=== PATIENT | female | born 1985 | race Caucasian/White ===

== ENCOUNTER 2021-03-22 21:31 | Emergency (ER) | payer SELFPAY ==
[~2021-03-22] VITALS: Ht 172.7 cm; Wt 61.0 kg
[2021-03-22] MEDS ORDERED: ONDANSETRON HCL 4MG/2ML INJ IV STA (23:11)
[2021-03-22] MEDS ORDERED: FAMOTIDINE 20MG/2ML VIAL IV STA (23:11)
[2021-03-22] MEDS ORDERED: VISCOUS LIDOCAINE 2% 15 ML UDC PO STA (23:11)
[2021-03-22] MEDS ORDERED: SODIUM CHLORIDE 0.9% 1,000 ML IV ONE (23:15)
[2021-03-22 23:29] LABS: BASOPHILS % 0.7 % (0.0-2.0); EOSINOPHILS % 1.2 % (0.0-5.0); HEMATOCRIT. 38.7 % (36.0-48.0); HEMOGLOBIN. 13.5 g/dL (12.0-16.0); LYMPHOCYTES % 25.4 % (20.0-50.0); MEAN CORPUSCULAR HEMOGLOBIN 30.9 pg (28.0-32.0); MEAN CORPUSCULAR VOLUME 88.7 fL (81.0-99.0); MEAN PLATELET VOLUME 9.5 fl (7.4-10.4); MONOCYTES % 6.2 % (2.0-8.0); NEUTROPHILS % 66.5 % (40.0-76.0); PLATELET 240 x1000/uL (130-400); RED BLOOD CELL COUNT 4.37 mill/uL (4.2-5.4)
[2021-03-22 23:36] LABS: CHLORIDE 108 mEq/L (98-107)
[2021-03-22 23:43] LABS: HCG SCREEN NEGATIVE
[2021-03-22 23:45] LABS: PROTHROMBIN TIME 10.5 sec (9.6-11.0)
[2021-03-23] MEDS ORDERED: POTASSIUM CHLORIDE 20MEQ TABLET SR PO SCH (00:30)
[2021-03-23] MEDS ORDERED: MORPHINE SULFATE 4 MG/ML CPJ (NOT FOR IM USE) IV STA (01:04)
[2021-03-23] MEDS ORDERED: MORPHINE SULFATE 2 MG/ML CPJ (NOT FOR IM USE) IV SCH (01:15)
[2021-03-23] MEDS ORDERED: FAMO-135 PO (03:32)
[2021-03-23 04:30] VITALS: BP 118/86
== END 2021-03-23 04:51 | disposition home or self-care (01) ==
LOC: ER 21:31
DX: R10.12 Left upper quadrant pain (principal)
CPT/HCPCS: 36415; 74176; 80053; 83690; 84703; 85025; 85610; 96361; 96374; 96375; 99284; J2270; J2405; J3490; J7030